=== PATIENT | female | born 1930 | race Caucasian/White ===

== ENCOUNTER 2016-09-30 14:33 | Inpatient (IN) | payer MEDICARE ==
[~2016-09-30] VITALS: Ht 157.5 cm; Wt 78.0 kg
[~2016-09-30 14:33] MED LIST: ASPIRIN81 M1; BONIVA150 MG PO; CALCIUM; COREG6.25 MG PO; CRESTOR20 M1 PO; EVISTA60 MG; K + POTASSIUM20 MEQ; LISINOPRIL/HCTZ1 TA3; METFORMIN500 MG; MULTIVITAMIN1 CTB; PRAVASTATIN SOD20 MG; PRILOSEC20 M1 PO; Synthroid,Levo75 MCG
[2016-09-30 15:02] VITALS: BP 148/72; BP 151/72
[2016-09-30 16:00] VITALS: BP 142/75
[2016-09-30] MEDS ORDERED: PRAVACHOL20 MG PO (16:27)
[2016-09-30] MEDS ORDERED: MOBIC7.5 MG PO (16:28)
[2016-09-30] MEDS ORDERED: NEURONTIN300 MG PO (16:28)
[2016-09-30 16:30] LABS: BASO % 0.3 % (0.0-1.0); EOS # 0.1 10*3/uL (0.0-0.4); EOS % 2.3 % (1.0-4.0); HEMATOCRIT 38.4 % (37.0-47.0); HEMOGLOBIN 12.6 g/dl (12.0-16.0); LYMPH # 1.8 10*3/uL (1.3-4.4); MEAN CELL VOLUME 86.3 fl (81.0-99.0); MEAN CORPUSCULAR HGB 28.3 pg (27.0-31.0); MEAN CORPUSCULAR HGB CONC 32.8 g/dl (33.0-37.0); MEAN PLATELET VOLUME 10.2 fl (9.6-12.3); MONO # 0.4 10*3/uL (0.1-1.0); NEUT # 3.7 10*3/uL (2.3-7.9); NEUT % 61.2 % (47.0-73.0); PLATELET COUNT AUTOMATED 148 10*3/uL (130-400); RED BLOOD COUNT 4.45 10*6/uL (4.10-5.10); RED CELL DISTRI WIDTH 15.3 % (0-14.5)
[2016-09-30] MEDS ORDERED: FUROSEMIDE20 M1 PO (16:30)
[2016-09-30] MEDS ORDERED: CO Q-1010 M2 PO (16:31)
[2016-09-30] MEDS ORDERED: VITAMIN D1000 IU PO (16:31)
[2016-09-30 16:48] LABS: ALKALINE PHOSPHATASE 53 U/L (45-117); BILIRUBIN, TOTAL 0.9 mg/dl (0.2-1.0); BUN 17 mg/dl (7-24); CARBON DIOXIDE 30 mmol/L (21-32); CHLORIDE 102 mmol/L (98-107); EST GLOM FILT AFRICAN AMERICAN > 60 ml/min; GLUCOSE 89 mg/dL (65-99); POTASSIUM 3.5 mmol/L (3.5-5.1); SGOT/AST 25 IU/L (3-35); SGPT/ALT 24 U/L (12-78); SODIUM 141 mmol/L (136-145); TOTAL PROTEIN 7.8 gm/dL (6.4-8.2)
[2016-09-30 16:49] LABS: TROPONIN I < 0.015 ng/ml (<0.045)
[2016-09-30 16:55] LABS: FREE T4 1.3 ng/dl (0.76-1.46); THYROID STIM HORMONE (HS) 1.35 uIU/ml (0.358-4.75)
[2016-09-30 20:00] VITALS: BP 136/75
[2016-10-01] VITALS: BP 138/72
[2016-10-01 06:50] LABS: PHOSPHOROUS 4.2 mg/dL (2.5-4.9)
[2016-10-01 07:35] LABS: HEMOGLOBIN A1c 6.6 % (4.8-5.6)
[2016-10-01 07:58] LABS: VITAMIN D, 25-HYDROXY 56.5 ng/mL (30-100)
[2016-10-01 08:00] VITALS: BP 146/92
[2016-10-01 08:00] LABS: FOLIC ACID > 24.00 ng/mL (>5.38)
[2016-10-01 12:00] VITALS: BP 139/86
[2016-10-01 16:00] VITALS: BP 134/73
[2016-10-01 20:00] VITALS: BP 102/65
[2016-10-02] VITALS: BP 143/88
[2016-10-02 08:00] VITALS: BP 122/74
[2016-10-02] MEDS ORDERED: FUROSEMIDE20 M1 PO (09:37)
== END 2016-10-02 11:05 | disposition home or self-care (01) | DRG 292 ==
LOC: 5E 14:33
PROVIDERS: Student in an Organized Health Care Education/Training Program
DX: I11.0 Hypertensive heart disease with heart failure (principal); I25.810 Atherosclerosis of coronary artery bypass graft(s) without angina pectoris; E11.42 Type 2 diabetes mellitus with diabetic polyneuropathy; I27.2 Other secondary pulmonary hypertension; I50.33 Acute on chronic diastolic (congestive) heart failure; Z95.1 Presence of aortocoronary bypass graft; E66.09 Other obesity due to excess calories; E03.9 Hypothyroidism, unspecified; E55.9 Vitamin D deficiency, unspecified; K21.9 Gastro-esophageal reflux disease without esophagitis; R07.89 Other chest pain; E78.5 Hyperlipidemia, unspecified; Z68.31 Body mass index [BMI] 31.0-31.9, adult; Z80.0 Family history of malignant neoplasm of digestive organs; Z80.3 Family history of malignant neoplasm of breast; Z82.3 Family history of stroke; Z79.82 Long term (current) use of aspirin; Z79.84 Long term (current) use of oral hypoglycemic drugs; Z79.899 Other long term (current) drug therapy; I08.1 Rheumatic disorders of both mitral and tricuspid valves

== ENCOUNTER → 2017-01-20 | Outpatient (CLI) | payer MEDICARE ==
[~2017-01-20] MED LIST changes: +CO Q-1010 M2 PO; +FUROSEMIDE20 M1 PO; +MOBIC7.5 MG PO; +NEURONTIN300 MG PO; +PRAVACHOL20 MG PO; +VITAMIN D1000 IU PO
== END | disposition home or self-care (01) ==
LOC: RAD 14:24
DX: M17.0 Bilateral primary osteoarthritis of knee (principal); M15.0 Primary generalized (osteo)arthritis

== ENCOUNTER → 2017-07-29 | Outpatient (CLI) | payer MEDICARE | END | disposition home or self-care (01) | LOC: RAD 13:00 | DX: Z13.820 Encounter for screening for osteoporosis (principal); M81.0 Age-related osteoporosis without current pathological fracture; N95.9 Unspecified menopausal and perimenopausal disorder; M41.9 Scoliosis, unspecified; E55.9 Vitamin D deficiency, unspecified ==

== ENCOUNTER 2017-09-30 11:38 | Emergency (ER) | payer MEDICARE ==
[~2017-09-30] VITALS: Ht 157.4 cm; Wt 78.5 kg
[2017-09-30 11:41] VITALS: BP 164/79
[2017-09-30 12:21] LABS: BASO % 0.7 % (0.0-1.0); EOS # 0.1 10*3/uL (0.0-0.4); EOS % 2.3 % (1.0-4.0); HEMATOCRIT 36.7 % (37.0-47.0); HEMOGLOBIN 11.8 g/dl (12.0-16.0); LYMPH # 1.2 10*3/uL (1.3-4.4); LYMPH % 22.1 % (27.0-41.0); MEAN CELL VOLUME 90.2 fl (81.0-99.0); MEAN CORPUSCULAR HGB CONC 32.2 g/dl (33.0-37.0); MEAN PLATELET VOLUME 10.3 fl (9.6-12.3); MONO # 0.4 10*3/uL (0.1-1.0); NEUT # 3.8 10*3/uL (2.3-7.9); NEUT % 67.5 % (47.0-73.0); PLATELET COUNT AUTOMATED 173 10*3/uL (130-400); RED BLOOD COUNT 4.07 10*6/uL (4.10-5.10); RED CELL DISTRI WIDTH 15.3 % (0-14.5); WHITE BLOOD COUNT 5.6 10*3/uL (4.8-10.8)
[2017-09-30 12:31] LABS: ACT PARTIAL THROMBO TIME 26.7 SECONDS (20.8-31.5)
[2017-09-30 12:36] LABS: ALBUMIN 3.9 gm/dl (3.1-4.5); CREATININE 1.08 mg/dL (0.55-1.02); POTASSIUM 3.8 mmol/L (3.5-5.1); TOTAL PROTEIN 7.5 gm/dL (6.4-8.2)
== END 2017-09-30 12:53 | disposition home or self-care (01) ==
LOC: ED 11:38
PROVIDERS: Nurse Practitioner Family
DX: R04.0 Epistaxis (principal); R03.0 Elevated blood-pressure reading, without diagnosis of hypertension; Z79.899 Other long term (current) drug therapy; Z79.82 Long term (current) use of aspirin

== ENCOUNTER → 2018-04-11 | Outpatient (CLI) | payer MEDICARE ==
[~2018-04-11] MED LIST changes: +AVPAK AZITHROM250 M1 PO; +TESSALON PERLE100 MG PO
--- NOTE | ~2018-04-11 | HM ---
[place], [place] HOLTER MONITOR REPORT NAME: RAUL HUGGINS UNIT #: [id number] ROOM: DOCTOR: ZHANG CHIANG MD BIRTHDATE: [birth year] DOS: 04/13/2018 HOLTER MONITOR: The patient remained in sinus rhythm throughout the entire period. Minimum heart rate is 60, average heart rate is 79, maximum heart rate is 113. The patient remained in sinus rhythm. Short runs of atrial tachycardia, maximum is about 4 beats, no isolated PVCs and PACs are present. No bradycardic episodes. No other significant tachycardia. No pauses are present. FINAL IMPRESSION: Normal sinus rhythm. Few short runs of atrial tachycardia. No ventricular or supraventricular dysrhythmia. Isolated PACs and PVCs. No significant pauses. ZHANG CHIANG MD CM:HOLTER:HOLTER MONITOR REPORT [id number] ZHANG CHIANG MD
== END | disposition home or self-care (01) ==
DX: R00.0 Tachycardia, unspecified (principal); I25.810 Atherosclerosis of coronary artery bypass graft(s) without angina pectoris; E11.42 Type 2 diabetes mellitus with diabetic polyneuropathy

== ENCOUNTER 2018-04-18 19:03 | Emergency (ER) | payer MEDICARE ==
[~2018-04-18] VITALS: Ht 157.4 cm; Wt 79.4 kg
--- NOTE | ~2018-04-18 | EKG ---
[place], [place] ELECTROCARDIOGRAM REPORT NAME: RAUL HUGGINS UNIT #: [id number] ROOM: DOCTOR: SILVA DRAFT REPORT BIRTHDATE: [birth year] [facility] Test Date: 2018-04-18 Test Time: 19:36:40 Pat Name: RAUL HUGGINS Department: Room: Gender: F [employer] Bus Operator: EKG.TN : 1930 Requested By: ALLIE MUELLER Order Number: [id number] Reading MD: Measurements Intervals [place] Rate: 81 P: 37 LA: 181 QRS: -48 QRSD: 94 T: 16 QT: 360 QTc: 418 Interpretive Statements Sinus rhythm Atrial premature complex Left anterior fascicular block Abnormal R-wave progression, late transition No previous ECG available for comparison CM:EKGRPT:ELECTROCARDIOGRAM REPORT [id number] ALLIE ASENCIO DRAFT REPORT ALLIE MUELLER DO
[~2018-04-18 19:03] MED LIST changes: -AVPAK AZITHROM250 M1 PO; -TESSALON PERLE100 MG PO
[2018-04-18 19:45] LABS: BASO % 0.2 % (0.0-1.0); EOS # 0.2 10*3/uL (0.0-0.4); EOS % 1.2 % (1.0-4.0); HEMATOCRIT 34.5 % (37.0-47.0); HEMOGLOBIN 11.3 g/dl (12.0-16.0); LYMPH # 1.2 10*3/uL (1.3-4.4); LYMPH % 8.4 % (27.0-41.0); MEAN CELL VOLUME 86.3 fl (81.0-99.0); MEAN CORPUSCULAR HGB 28.3 pg (27.0-31.0); MEAN CORPUSCULAR HGB CONC 32.8 g/dl (33.0-37.0); MEAN PLATELET VOLUME 10.1 fl (9.6-12.3); MONO # 0.9 10*3/uL (0.1-1.0); MONO % 6.2 % (3.0-9.0); NEUT # 11.6 10*3/uL (2.3-7.9); NEUT % 83.4 % (47.0-73.0); PLATELET COUNT AUTOMATED 192 10*3/uL (130-400); RED CELL DISTRI WIDTH 15.6 % (0-14.5); WHITE BLOOD COUNT 13.9 10*3/uL (4.8-10.8)
[2018-04-18 20:02] VITALS: BP 138/82
[2018-04-18 20:04] LABS: ALBUMIN 2.9 gm/dl (3.1-4.5); ALKALINE PHOSPHATASE 56 U/L (45-117); BUN 26 mg/dl (7-24); CHLORIDE 97 mmol/L (98-107); CREATININE 1.23 mg/dL (0.55-1.02); POTASSIUM 3.5 mmol/L (3.5-5.1); SGOT/AST 12 IU/L (3-35); SGPT/ALT 20 U/L (12-78); SODIUM 133 mmol/L (136-145); TOTAL PROTEIN 6.7 gm/dL (6.4-8.2)
[2018-04-18 20:06] LABS: ACT PARTIAL THROMBO TIME 23.7 SECONDS (20.8-31.5)
[2018-04-18 20:07] LABS: TROPONIN I < 0.015 ng/ml (<0.045)
[2018-04-18] MEDS ORDERED: AVPAK AZITHROM250 M1 PO (21:40)
[2018-04-18] MEDS ORDERED: TESSALON PERLE100 MG PO (21:40)
== END 2018-04-18 21:55 | disposition home or self-care (01) ==
LOC: ED 19:03
PROVIDERS: Student in an Organized Health Care Education/Training Program
DX: R05 Cough (principal); R06.02 Shortness of breath; I10 Essential (primary) hypertension; E03.9 Hypothyroidism, unspecified; E66.9 Obesity, unspecified; E78.5 Hyperlipidemia, unspecified; E11.40 Type 2 diabetes mellitus with diabetic neuropathy, unspecified; I25.10 Atherosclerotic heart disease of native coronary artery without angina pectoris; K21.9 Gastro-esophageal reflux disease without esophagitis; Z79.899 Other long term (current) drug therapy; Z79.82 Long term (current) use of aspirin

== ENCOUNTER → 2018-04-26 | Outpatient (CLI) | payer MEDICARE ==
[~2018-04-26] MED LIST changes: +AVPAK AZITHROM250 M1 PO; +TESSALON PERLE100 MG PO
== END | disposition home or self-care (01) ==
LOC: US 15:30
DX: I73.9 Peripheral vascular disease, unspecified (principal); M79.606 Pain in leg, unspecified

== ENCOUNTER 2019-12-12 17:43 | Inpatient (IN) | payer MEDICARE ==
[~2019-12-12] VITALS: Ht 157.5 cm; Wt 79.4 kg
[2019-12-12 17:48] VITALS: BP 134/56
[2019-12-12] MEDS ORDERED: LASIX20 MG PO (18:12)
[2019-12-12] MEDS ORDERED: KLOR-CON M2020 ME1 PO (18:14)
[2019-12-12 18:47] LABS: MEAN CELL VOLUME 79.6 fl (81.0-99.0); MEAN CORPUSCULAR HGB CONC 30.2 g/dl (33.0-37.0); MEAN PLATELET VOLUME 11.2 fl (9.6-12.3); PLATELET COUNT AUTOMATED 191 10*3/uL (130-400); RED CELL DISTRI WIDTH 18.6 % (0-14.5); WHITE BLOOD COUNT 6.2 10*3/uL (4.8-10.8)
[2019-12-12 18:51] LABS: HEMATOCRIT 19.9 % (37.0-47.0)
--- NOTE | 2019-12-12 18:52 | NUR ---
GAVE PT'S SON AN UPDATE PER PT PERMISSION.HE IS IN THE LOBBY. ---STELLA COLLIER RN
--- NOTE | 2019-12-12 19:00 | NUR ---
NURSE TO NURSE REPORT GIVEN TO THIS RN
[2019-12-12 19:02] LABS: ACT PARTIAL THROMBO TIME 27.2 SECONDS (20.0-32.1)
[2019-12-12 19:05] LABS: ALBUMIN 3.4 gm/dl (3.1-4.5); ALKALINE PHOSPHATASE 35 U/L (45-117); BUN 35 mg/dl (7-24); CHLORIDE 107 mmol/L (98-107); CREATININE 1.01 mg/dL (0.55-1.02); LIPASE 121 U/L (73-393); POTASSIUM 4.2 mmol/L (3.5-5.1); SGOT/AST 26 IU/L (3-35); SGPT/ALT 17 U/L (12-78); SODIUM 140 mmol/L (136-145); TOTAL PROTEIN 6.7 gm/dL (6.4-8.2)
[2019-12-12 19:07] LABS: BASOPHILS 1 % (0-1); TOTAL CELLS COUNTED 100 #CELLS
[2019-12-12 19:08] LABS: MICROCYTOSIS SLIGHT; PLATELET SUFFICIENCY NORMAL (NORMAL)
[2019-12-12 19:09] LABS: OVALOCYTES FEW; POLYCHROMASIA SLIGHT; SCHISTOCYTES FEW
[2019-12-12 19:45] VITALS: BP 127/64
[2019-12-12 20:06] VITALS: BP 140/69
--- NOTE | 2019-12-12 20:06 | NUR ---
A 89, admitted to , under the services of BRET Knutson DO with a diagnosis of GI BLEED. Chief complaint is BLACK TARRY STOOLS. Patient arrived via ambulance from ER. Monitor applied. Initial assessment completed. Vital signs taken and recorded. BRET KNUTSON DO notified of admission to the unit. Orders received. See assessment for past medical history, medications and allergies. Patient and/or family oriented to unit. [facility] visitation policy reviewed. Clothing/patient valuable form completed. JAZZY BARROS
[2019-12-12] MEDS ORDERED: PRAVASTATIN SOD10 MG PO (20:18)
[2019-12-12] MEDS ORDERED: METFORMIN HYDR500 MG PO (20:22)
--- NOTE | 2019-12-12 20:25 | NUR ---
MED REC COMPLETED WITH LIST FROM HOME. COPY MADE AND PLACED ON THE CHART
--- NOTE | 2019-12-12 20:29 | NUR ---
PATIENT STATES THAT SHE HAS NOT TAKEN HER METFORMIN FOR MONTHS. ALSO STATES THAT SHE ONLY TAKES HER LASIX AND POTASSIUM WHEN SHE HAS EDEMA. SHE DOES NOT TAKE THEM EVERY DAY.
--- NOTE | 2019-12-12 21:20 | NUR ---
DR BONILLA AWARE OF CONSULT. STATES KEEP PATIENT NPO FOR EGD TOMORROW. STATES FOR PATIENT TO HAVE A DOSE OF IV PROTONIX TONIGHT
[2019-12-12 22:10] VITALS: BP 140/66
--- NOTE | 2019-12-12 22:27 | NUR ---
BLOOD TRANSFUSION INITIATED PER POLICY. WILL MONTIOR CLOSELY. VSS AT TIME OF INITIATION.
[2019-12-12 22:42] VITALS: BP 133/59
--- NOTE | 2019-12-12 22:42 | NUR ---
TOLERATING TRANSFUSION WELL. VSS. INCREASED TO 125CC/HR AT THIS TIME. WILL CONTINUE TO MONITOR.
[2019-12-13] VITALS (14 sets, daily range): BP systolic 125–146; BP diastolic 62–87
--- NOTE | 2019-12-13 00:13 | NUR ---
BLOOD TRANSFUSION COMPLETED; VS RECORDED. PT. VOICES NO C/O AT THIS TIME. [facility].
[2019-12-13 06:14] LABS: HEMATOCRIT 21.6 % (37.0-47.0); MEAN CELL VOLUME 80.3 fl (81.0-99.0); MEAN CORPUSCULAR HGB 24.9 pg (27.0-31.0); MEAN PLATELET VOLUME 11.1 fl (9.6-12.3); PLATELET COUNT AUTOMATED 189 10*3/uL (130-400); RED BLOOD COUNT 2.69 10*6/uL (4.10-5.10); RED CELL DISTRI WIDTH 19.1 % (0-14.5); WHITE BLOOD COUNT 5.4 10*3/uL (4.8-10.8)
[2019-12-13 06:32] LABS: CREATININE 1.06 mg/dL (0.55-1.02); POTASSIUM 3.7 mmol/L (3.5-5.1)
[2019-12-13 06:44] LABS: PLATELET SUFFICIENCY NORMAL (NORMAL); TOTAL CELLS COUNTED 100 #CELLS
[2019-12-13 06:45] LABS: OVALOCYTES FEW; TARGET CELLS FEW
[2019-12-13 06:46] LABS: SCHISTOCYTES FEW
--- NOTE | 2019-12-13 08:15 | NUR ---
PHYSICAL THERAPY Eval received pt admitted with GI bleed w anemia. Per medical notes pt still with critical hematocrit and hemoglobin after one unit of blood. Pt for possible EGD today, will follow as medically appropriate thank you. Lula Alonso PT
--- NOTE | 2019-12-13 08:17 | NUR ---
BLOOD TRANSFUSION INITIATED AT THIS TIME. PT TOLERATES WELL. IV SITE IS PATENT. FLUSHING WITH EASE. ADEQUATE BLOOD RETURN. DRESSING C/D/I TO IV SITE. RESPIRATIONS EASY AND UNLABORED ON ROOM AIR. WILL CONTINUE TO MONITOR. SAFETY MEASURES IN PLACE. CALL [facility] IN REACH.
--- NOTE | 2019-12-13 09:00 | NUR ---
Telegraph Service Clerk in to talk to patient. Patient states lives at home with alone. There are 3 steps in the home. Physician: marcy hernandez [facility]acy: [facility] Patient's level of ADLs: INDEPENDENT Patient has working utilities: all working DME: cane and walker she rarely uses Follow-up physician's appointment after d/c: will be made by hospitalist nurse director upon discharge Does patient want to access PORTAL?: no Discharge plan discussed with patient, she states she lives at home alone, she is independent in adls and ambulation, has a cane and walker but rarely uses it, she stated her son lives near her and brings her dinner every night and transports her to where ever she needs to go, she states she will return home when discharged, discussed with her and educated her on [facility] and the services they provide, she stated she doesn't feel at this time she needs any home services, case management will follow for any home needs. KIM JURADO
--- NOTE | 2019-12-13 09:41 | NUR ---
OT NOTE Occupational therapy order received and chart reviewed. Per chart review, patient has a decreased H&H this AM and is receiving a blood transfusion. Will hold therapy at this time and continue to follow. Thank you. Lexis Redmond OTR/L
--- NOTE | 2019-12-13 10:00 | NUR ---
PT NPO AT THIS TIME. WILL CATCH PT UP ON AM MEDS ONCE PT RETURNS FROM EGD.
--- NOTE | 2019-12-13 10:39 | NUR ---
DR ALONSO GIVES ORDERS TO GIVE 20 MG IV LASIX X 1 AFTER BLOOD TRANSFUSION IS COMPLETE.
--- NOTE | 2019-12-13 11:37 | NUR ---
BLOOD TRANSFUSION COMPLETE AT THIS TIME.
--- NOTE | 2019-12-13 12:02 | NUR ---
PT TO SURGERY AT THIS TIME. SURGERY RN STATES THAT 30 MIN POST BLOOD VITALS WILL BE OBTAINED IN SURGERY AT 1207.
--- NOTE | 2019-12-13 15:00 | NUR ---
PT RETURNS FROM SURGERY AT THIS TIME.
[2019-12-13 15:50] LABS: BASO % 0.4 % (0.0-1.0); EOS # 0.1 10*3/uL (0.0-0.4); EOS % 1.4 % (1.0-4.0); HEMATOCRIT 25.6 % (37.0-47.0); LYMPH # 1.2 10*3/uL (1.3-4.4); LYMPH % 23.7 % (27.0-41.0); MEAN CELL VOLUME 79.3 fl (81.0-99.0); MEAN CORPUSCULAR HGB 25.4 pg (27.0-31.0); MEAN PLATELET VOLUME 10.2 fl (9.6-12.3); MONO # 0.4 10*3/uL (0.1-1.0); NEUT # 3.3 10*3/uL (2.3-7.9); NEUT % 66.1 % (47.0-73.0); PLATELET COUNT AUTOMATED 190 10*3/uL (130-400); RED BLOOD COUNT 3.23 10*6/uL (4.10-5.10)
[2019-12-14] VITALS: BP 146/65
--- NOTE | 2019-12-14 00:56 | NUR ---
24 HR chart check completed.
--- NOTE | 2019-12-14 02:00 | NUR ---
SLEEPING NOT ACUTE DISTRESS NOTED.
[2019-12-14 06:57] LABS: BASO % 0.6 % (0.0-1.0); EOS # 0.1 10*3/uL (0.0-0.4); EOS % 2.4 % (1.0-4.0); HEMATOCRIT 25.4 % (37.0-47.0); LYMPH # 1.5 10*3/uL (1.3-4.4); LYMPH % 27.7 % (27.0-41.0); MEAN CELL VOLUME 81.7 fl (81.0-99.0); MEAN CORPUSCULAR HGB 25.7 pg (27.0-31.0); MEAN CORPUSCULAR HGB CONC 31.5 g/dl (33.0-37.0); MEAN PLATELET VOLUME 10.5 fl (9.6-12.3); MONO # 0.5 10*3/uL (0.1-1.0); MONO % 9.7 % (3.0-9.0); NEUT # 3.2 10*3/uL (2.3-7.9); NEUT % 59.4 % (47.0-73.0); PLATELET COUNT AUTOMATED 170 10*3/uL (130-400); RED BLOOD COUNT 3.11 10*6/uL (4.10-5.10); RED CELL DISTRI WIDTH 18.6 % (0-14.5); WHITE BLOOD COUNT 5.3 10*3/uL (4.8-10.8)
[2019-12-14 07:06] LABS: BUN 22 mg/dl (7-24); CHLORIDE 106 mmol/L (98-107); CREATININE 1.03 mg/dL (0.55-1.02); POTASSIUM 3.3 mmol/L (3.5-5.1); SODIUM 141 mmol/L (136-145)
--- NOTE | 2019-12-14 07:30 | NUR ---
TOOK OVER CARE OF PT. PT SITTING UP IN BED. NO S/S OF DISTRESS NOTED. RESPIRATIONS EASY AND UNLABORED ON ROOM AIR. PT STATES THAT SHE IS FEELING MUCH BETTER TODAY FROM YESTERDAY. ASSESSMENT COMPLETE. CALL [facility].
[2019-12-14 08:00] VITALS: BP 134/75
--- NOTE | 2019-12-14 09:00 | NUR ---
case management visits with patient, she states she will be discharged to home today and denies any home needs,
[2019-12-14] MEDS ORDERED: PROTONIX40 MG PO (09:57)
[2019-12-14] MEDS ORDERED: Carafate1 GM PO (09:57)
--- NOTE | 2019-12-14 10:42 | NUR ---
SPOKE TO PATIENT'S SON ERIC REGARDING PT DISCHARGE AND REVIEWED DISCHARGE INSTRUCTIONS WITH PT SON.
--- NOTE | 2019-12-14 10:49 | NUR ---
Discharge instructions reviewed with patient/family. Patient receptive and verbalizes understanding. Follow-up care arranged. Written instructions given to patient/family. XENA PRADO
--- NOTE | 2019-12-14 11:30 | NUR ---
PT ASSISTED OUT OF FACILITY VIA W/C TO SON'S CAR AT THIS TIME.
--- NOTE | 2019-12-14 11:53 | NUR ---
PHYSICAL THERAPY Eval received, chart reviewed pt is being discharged to home with family will defer therapy at this time. Lula Alonso PT
--- NOTE | 2019-12-14 11:54 | NUR ---
OT NOTE Occupational therapy order received and chart reviewed. Per chart review, patient is being discharged this AM. No further OT indicated at this time. Will continue to follow if discharge plans change. Thank you. Lexis Redmond, OTR/L
== END 2019-12-14 12:22 | disposition home or self-care (01) | DRG 378 ==
LOC: ED 17:43 → EDHOLD 19:21 → 4E 19:21 → EDHOLD 19:22 → 4E 19:35
PROVIDERS: Emergency Medicine; Family Medicine; Internal Medicine; Student in an Organized Health Care Education/Training Program; ADMIT Internal Medicine; ATTEND Internal Medicine
PROC: 30233N1 Transfusion of Nonautologous Red Blood Cells into Peripheral Vein, Percutaneous Approach (ICD-10-PCS; principal; 2019-12-12)
PROC: 0DB68ZX Excision of Stomach, Via Natural or Artificial Opening Endoscopic, Diagnostic (ICD-10-PCS; 2019-12-13)
DX: K29.71 Gastritis, unspecified, with bleeding (principal); D62 Acute posthemorrhagic anemia; I25.810 Atherosclerosis of coronary artery bypass graft(s) without angina pectoris; D72.810 Lymphocytopenia; E03.9 Hypothyroidism, unspecified; K21.9 Gastro-esophageal reflux disease without esophagitis; E11.42 Type 2 diabetes mellitus with diabetic polyneuropathy; I10 Essential (primary) hypertension; M19.90 Unspecified osteoarthritis, unspecified site; E11.40 Type 2 diabetes mellitus with diabetic neuropathy, unspecified; E11.65 Type 2 diabetes mellitus with hyperglycemia; E55.9 Vitamin D deficiency, unspecified; E87.6 Hypokalemia; E66.09 Other obesity due to excess calories; Z68.32 Body mass index [BMI] 32.0-32.9, adult; Z90.710 Acquired absence of both cervix and uterus; Z95.1 Presence of aortocoronary bypass graft; Z80.0 Family history of malignant neoplasm of digestive organs; Z82.3 Family history of stroke; Z80.3 Family history of malignant neoplasm of breast; Z79.899 Other long term (current) drug therapy